=== PATIENT | female | born 1975 | race African-American/Black ===

== ENCOUNTER → 2016-10-18 | Outpatient (CLI) | payer OTHER, MEDICAID ==
[~2016-10-18] MED LIST: HYDR-2768 PO; LISI40TA PO
== END ==
LOC: HPND 08:57
PROVIDERS: ATTEND Obstetrics & Gynecology
DX: O09.529 Supervision of elderly multigravida, unspecified trimester (principal); O35.1XX0 Maternal care for (suspected) chromosomal abnormality in fetus, not applicable or unspecified; Z36 Encounter for antenatal screening of mother
CPT/HCPCS: 76815; 76817

== ENCOUNTER → 2016-11-01 | Outpatient (CLI) | payer OTHER, MEDICAID | LOC: HPND 10:18 | PROVIDERS: ATTEND Obstetrics & Gynecology | DX: O09.522 Supervision of elderly multigravida, second trimester (principal); O35.1XX0 Maternal care for (suspected) chromosomal abnormality in fetus, not applicable or unspecified; Z3A.19 19 weeks gestation of pregnancy | CPT/HCPCS: 76816 ==

== ENCOUNTER → 2016-12-13 | Outpatient (CLI) | payer OTHER, MEDICAID | LOC: HPND 11:00 | PROVIDERS: ATTEND Obstetrics & Gynecology | DX: O35.1XX0 Maternal care for (suspected) chromosomal abnormality in fetus, not applicable or unspecified (principal); O09.522 Supervision of elderly multigravida, second trimester | CPT/HCPCS: 76816 ==